=== PATIENT | female | born 1955 | race Caucasian/White ===

== ENCOUNTER 2025-03-31 08:55 | Emergency (ER) | payer MEDICARE, BC ==
[~2025-03-31] VITALS: Ht 180.3 cm; Wt 59.9 kg
[2025-03-31] MEDS ORDERED: ONDANSETRON ODT 4 MG TAB.RAPDIS ONE (10:49)
[2025-03-31] MEDS ORDERED: LIDOCAINE 1%-EPI 1:100,000 20 ML VIAL ONE (10:49)
[2025-03-31] MEDS ORDERED: NEOMY/BACITRA/POLYMYXIN B OINT UD PACKET TP ONE (10:49)
[2025-03-31] MEDS ORDERED: HYDROCODONE/APAP 5-325MG TABLET ONE (10:50)
[2025-03-31] MEDS: HYDROCODONE/APAP 5-325MG TABLET PO ONE (10:52)
[2025-03-31] MEDS: LIDOCAINE 1%-EPI 1:100,000 20 ML VIAL IJ ONE (10:53)
[2025-03-31] MEDS: ONDANSETRON ODT 4 MG TAB.RAPDIS SL ONE (10:53)
[2025-03-31] MEDS: NEOMY/BACITRA/POLYMYXIN B OINT UD PACKET TP ONE (10:53)
[2025-03-31 11:00] VITALS: BP 100/63
[2025-03-31] MEDS ORDERED: HYDR-3972 PO (11:54)
[2025-03-31 12:14] VITALS: BP 100/63; TEMP 97.7; O2SAT 98
== END 2025-03-31 12:15 | disposition home or self-care (01) ==
LOC: ER 08:55
DX: S06.0X0A Concussion without loss of consciousness, initial encounter (principal); S16.1XXA Strain of muscle, fascia and tendon at neck level, initial encounter; S40.011A Contusion of right shoulder, initial encounter; S01.01XA Laceration without foreign body of scalp, initial encounter; R11.0 Nausea; W01.0XXA Fall on same level from slipping, tripping and stumbling without subsequent striking against object, initial encounter; Y93.01 Activity, walking, marching and hiking; Y92.89 Other specified places as the place of occurrence of the external cause; Y99.8 Other external cause status
CPT/HCPCS: 12001; 70450; 72125; 73020; 93005; 99284; J3490; A4606; A4663; Q0162